=== PATIENT | male | born 1995 | race Caucasian/White ===

== ENCOUNTER 2017-09-08 08:57 | Emergency (ER) | payer OTHER, SELFPAY ==
--- NOTE | 2017-09-08 09:06 | RAD_ITS ---
STUDY: X-RAY - LUMBAR SPINE REASON FOR EXAM: Male, 21 years old. Pain following recent injury. TECHNIQUE: 3 view(s) of the lumbar spine were obtained. COMPARISON: None FINDINGS: Normal lumbar lordosis. There is no substantial scoliosis. There is a normal alignment of the vertebrae. Normal vertebral bodies and endplates. Normal disc space heights. The soft tissue structures are unremarkable. RAD/Lumbar Spine 2 or 3 Views IMPRESSION: Normal x-ray examination of the lumbar spine. Electronically Signed: Davonte Alonso MD at 9:25 EST Tel [phone], Service support ,
--- NOTE | 2017-11-11 15:30 | ED.DCSUM_ITS ---
- ER Visit Summary Date of Service: 11/11/17 Chief Complaint: Back pain History of Present Illness: Note this is a late dictation from the emergency department visit dated 09/08/2017. The patient is a 22 M who presents with back pain for the past 6 hours. He was lifting a pettit on truck when it suddenly released. He does complain of some numbness radiating to right buttock. No pain radiating to the legs. No fever abdominal pain urinary retention or fecal incontinence. He describes his pain as burning. No other injuries. Physical Examination: Afebrile vitals are stable Heart regular rate and rhythm Lungs clear Abdomen soft Patient does have some right paraspinal lumbar tenderness Negative straight leg raise bilaterally 5 out of 5 dorsiflexion, plantarflexion, extensor hallucis longus. Test Results: Lumbar x-rays are unremarkable. Emergency Department Course and Treatment: Patient has no signs or symptoms of serious life or limb threatening pathology. His history and examination are consistent with a lumbosacral strain. He was instructed on supportive care and discharge. Treatment Plan: [] Disposition: Discharge Impression: Lumbosacral strain This note was generated with [employer] dictation software. It may contain incorrect words, spelling, and punctuation that were not noted in review of the chart prior to signing ED Disposition - Plan for ED Patient: Disposition: Home or Assisted Living Referrals: Care Physician,No Primary [Primary Care Provider] -
== END 2017-09-08 10:10 | disposition home or self-care (01) ==
PROVIDERS: Emergency Provider Emergency Medicine
DX: S39.012A Strain of muscle, fascia and tendon of lower back, initial encounter (principal); X50.9XXA Other and unspecified overexertion or strenuous movements or postures, initial encounter; Y93.9 Activity, unspecified; Y92.9 Unspecified place or not applicable; Z72.0 Tobacco use
CPT/HCPCS: 72100; 99282

== ENCOUNTER 2021-04-25 12:12 | Emergency (ER) | payer SELFPAY ==
[2021-04-25 12:13] VITALS: BP 95/62; PULSE 54; RESP 16; TEMP 36.6; O2SAT 100; BMI 43.2
--- NOTE | 2021-04-25 12:52 | NURSING ---
NO OLD EKGS
--- NOTE | 2021-04-25 13:29 | CT_ITS ---
EXAM: CT HEAD WITHOUT INTRAVENOUS CONTRAST CLINICAL INDICATION: Headaches. TECHNIQUE: Multiple axial images were obtained of the head without intravenous contrast. This CT exam was performed using one or more of the following dose reduction techniques: automated exposure control, adjustment of the mA and/or kV according to patient size, and/or use of iterative reconstruction technique. This report was created using [employer] report generation technology. COMPARISON: None. FINDINGS: BRAIN AND EXTRA-AXIAL SPACES: Unremarkable. No intra- or extra-axial hemorrhage. No evidence of acute infarct. No intracranial mass or mass effect. There is preservation of the donato/white matter interface. Posterior fossa structures are unremarkable. Ventricles are appropriate for age. No hydrocephalus. Basal cisterns are patent. BONES/JOINTS: Unremarkable. No discrete lytic or blastic abnormalities. SINUSES: Unremarkable as visualized. Clear. MASTOID AIR CELLS: Unremarkable. Clear. ORBITS: Visualized globes, extraocular muscles, optic nerves and retrobulbar fat appear unremarkable. CT/Brain/Head without Contrast IMPRESSION: Negative head/brain CT without intravenous contrast. Electronically Signed: Donato Lin MD at 15:34 EDT , Service support ,
--- NOTE | 2021-04-25 13:29 | EKG12_ITS ---
Test Reason : CP Blood Pressure : / mmHG Vent. Rate : 058 BPM Atrial Rate : 058 BPM P-R Int : 154 ms QRS Dur : 104 ms QT Int : 382 ms P-R-T Axes : 046 046 020 degrees QTc Int : 374 ms Sinus bradycardia with marked sinus arrhythmia Otherwise normal ECG Confirmed by STANLEY BOYD, ROMAIN ([id number]), fan mail editor FERCHO ALMENDAREZ ([id number]) on 04/26/2021 11:46:53 AM Referred By: ADELA/KELIN Confirmed By:ROMAIN ANGEL MD
--- NOTE | 2021-04-25 13:31 | EDS_ITS ---
HPI History of Present Illness Chief Complaint: Chest Pain Informant: patient Narrative Narrative: Patient presents with episodes of anxiety going on for 2 or so months. He states they come out of the blue. He will suddenly get anxious. He has trouble focusing. He gets chest pain. He will sometimes feel like it is hard to breathe. The symptoms usually last 1 to 2 hours. In between episodes he feels perfectly fine. He is just not had these before so he is not sure if this is a problem or not. He does not have depression. No suicidal thoughts. He is not coughing. No fevers or chills. Nothing specifically makes the symptoms better or worse. He is not a smoker. He has no blood pressure or diabetes or family history of heart disease. He is last travel was back in December. Patient also states he has been having headaches. Most of these are in the right frontal area. These have been going on for about 6 or 7 months. No focal neurologic deficits. No specific symptoms make these better or worse either. [facility] Medical History GERD (gastroesophageal reflux disease) Home Medications hydroxyzine pamoate [Vistaril] 25 mg PO TID PRN #20 cap 04/25/21 [Rx Last Taken Unknown] Allergy/AdvReac Type Severity Reaction Status Date / Time No Known Allergies Allergy Verified 04/25/21 12:16 Social History Smoking Status: Current every day smoker tobacco type: cigarettes ROS ROS ED Constitutional Constitutional ED: Denies chills, fever(s) or sweats Eyes Eyes: Denies change in vision ENT ENT ED: Denies ear pain or rhinorrhea Cardiovascular Cardiovascular: Reports as per HPI, chest pain and palpitations Respiratory/Chest Respiratory/Chest: Reports dyspnea; Denies cough or dyspnea on exertion Gastrointestinal Gastrointestinal: Denies abdominal pain, nausea or vomiting Genitourinary Genitourinary ED: Denies dysuria Musculoskeletal Musculoskeletal: Denies back pain Integumentary Denies rash Neurologic Neurologic: Reports headache(s); Denies paresthesias or weakness Psychiatric Psychiatric: Reports anxiety; Denies depression, suicidal ideation or suicidal thoughts Endocrine Endocrinology: Denies polydipsia or polyuria Hematologic/Lymphatic Hematologic/Lymphatic: Denies easy bleeding or easy bruising Allergic/Immunologic Allergic/Immunologic ED: Denies urticaria EXAM Physical Exam Const Vital Signs: 04/25/21 12:13 04/25/21 14:49 04/25/21 16:22 Temperature 97.9 F Temperature Source Temporal Pulse Rate 54 L 53 L 49 L Respiratory Rate 16 18 15 Blood Pressure 95/62 122/72 H 127/71 H Blood Pressure Mean 73 88 89 Pulse Ox 100 96 98 Oxygen Delivery Method Room Air Room Air Room Air HEENT normocephalic and atraumatic Eyes PERRL and EOMs intact bilaterally General Eye ED: Negative for pale conjunctiva Neck no lymphadenopathy and supple Chest Wall inspection of chest normal and palpation of chest normal Resp normal respiratory effort and clear to auscultation bilaterally Effort and Inspection: Negative for respiratory distress Auscultation: Negative for rales, rhonchi or wheezes Cardio regular rate, regular rhythm and S1 normal heart sound Rate: bradycardia Peripheral Pulses: radial pulses present and posterior tibial pulses present GI normal to inspection, nondistended, normoactive bowel sounds, soft to palpation, non-tender, non-distended and no masses Back/Spine no CVA tenderness Extremity normal to inspection General Extremety ED: Yes tenderness; Negative for edema or pulses abnormal General Extremity: Negative for edema or pulses abnormal Neuro oriented x3 Sensorium / Orientation: awake and alert Psych mental status grossly normal Attitude: No agitated Mood & Affect: Negative for depressed, anxious or tearful Skin no rashes or lesions noted MDM MDM MDM Narrative Medical decision making narrative: Patient's chest x-ray and CT are negative. Blood work shows no marked abnormalities. He also has a negative troponin. He has had symptoms been going on for some months. I think this likely is related to anxiety. I will write him for some Vistaril. I will refer him for follow- up. We did discuss reasons to return and include worsening episodes of pain, anxiety, dyspnea, fevers or other concerns. Lab Data Attestation: I reviewed the patient's lab results. Labs: Laboratory Results - last 24 hr 04/25/21 04/25/21 13:48 13:48 WBC 8.5 RBC 5.52 Hgb 15.9 Hct 47.4 MCV 85.9 MCH 28.8 MCHC 33.5 RDW Std Deviation 36.7 RDW Coeff of Nell 11.7 Plt Count 345 MPV 10.8 Immature Gran % (Auto) 0.200 Neut % (Auto) 67.2 Lymph % (Auto) 26.6 [place] % (Auto) 4.8 Eos % (Auto) 0.6 Baso % (Auto) 0.6 Absolute Neuts (auto) 5.7 Absolute Lymphs (auto) 2.27 Nucleated RBC % 0 Sodium 139 Potassium 3.5 Chloride 106 Carbon Dioxide 25.0 Anion Gap 8 BUN 10 Creatinine 1.14 Estim Creat Clear Calc 105.50 Est GFR (MDRD) Af Amer 100 Est GFR (MDRD) Non-Af 83 BUN/Creatinine Ratio 8.8 L Glucose 92 Calcium 9.3 Troponin I High Sens 6.9 Radiography Diagnostic Testing: Radiology Impression Brain CT 04/25/21 13:29 IMPRESSION: Negative head/brain CT without intravenous contrast. Electronically Signed: Donato Lin MD at 15:34 EDT , Service support , Chest X-Ray 04/25/21 15:26 IMPRESSION: Normal chest radiograph. Electronically Signed: Donato Lin MD at 15:39 EDT , Service support , Discharge Plan Triage Chief Complaint: Chest Pain ED Provider: Matt Mccrary Dx/Rx/DC Orders Clinical Impression: Panic attacks, Chest pain, History of frequent headaches Instructions: ED Chest Pain, Noncardiac, ED Panic Attack Prescriptions: New hydroxyzine pamoate [Vistaril] 25 mg capsule 25 mg PO TID PRN (Reason: anxiety) Qty: 20 RF: 0 Primary Care Provider: Cortez Fitzgerald Referrals: Cortez Fitzgerald MD [Primary Care Provider] - 3-5 Days Disposition Disposition: Home, Self Care
[2021-04-25 13:53] LABS: Absolute Lymphocyte Count 2.27 X10^3/uL (0.83-4.51); Absolute Neutrophil Count 5.7 X10^3/uL (2.0-7.7); Basophil# 0.05 X10^3/uL; Basophil% 0.6 % (0-1); Eosinophil# 0.05 X10^3/uL; Eosinophils% 0.6 % (0-5); Hematocrit 47.4 % (40-54); Hemoglobin 15.9 g/dL (13.0-16.5); Lymphocyte # 2.27 X10^3/ul (0.83-4.51); Lymphocyte % 26.6 % (19-41); Mean Corp Hgb Conc 33.5 g/dL (32-36); Mean Corpuscular Hgb 28.8 pg (27.0-32.0); Mean Corpuscular Volume 85.9 fL (80-94); Mean Platelet Vol. 10.8 fl (6.2-12.0); Monocyte# 0.41 X10^3/uL; Monocyte% 4.8 % (0-10); NRBC Flagged by Analyzer 0 % (0-5); Neutrophil # 5.72 X10^3/uL (2.7-7.7); Neutrophil % 67.2 % (47-70); Platelet Count 345 K/mm3 (150-450); RBC Distribution Width CV 11.7 % (11.6-14.6); RBC Distribution Width SD 36.7 fl (35.1-43.9); Red Blood Count 5.52 M/mm3 (4.6-6.2); White Blood Count 8.5 K/mm3 (4.4-11.0)
[2021-04-25 14:10] LABS: Anion Gap 8 (5-15); BUN 10 mg/dL (7-18); BUN/Creat Ratio 8.8 RATIO (10-20); Calcium,Total 9.3 mg/dL (8.5-10.1); Chloride 106 mmol/L (98-107); Creatinine, Serum 1.14 mg/dL (0.70-1.30); EST Glomerular Filtration Rate 83 mL/min (>60); Est Glom Filt Rate - Afr Amer 100 mL/min (>60); Glucose 92 mg/dL (74-106); Potassium 3.5 mmol/L (3.5-5.1); Sodium Level 139 mmol/L (136-145); Troponin-I HS 6.9 pg/mL (3.0-78.5)
[2021-04-25 14:49] VITALS: BP 122/72; PULSE 53; RESP 18; O2SAT 96
--- NOTE | 2021-04-25 15:26 | RAD_ITS ---
EXAM: XR CHEST, 1 VIEW CLINICAL INDICATION: Chest pain. TECHNIQUE: Frontal view of the chest. This report was created using [employer] report generation technology. COMPARISON: None. FINDINGS: LUNGS AND PLEURAL SPACES: Unremarkable. No consolidation or edema. No pneumothorax. No effusion. HEART: Unremarkable. Cardiac silhouette not enlarged. MEDIASTINUM: Central airways and mediastinal contour are unremarkable. BONES/JOINTS: Unremarkable. SOFT TISSUES: Unremarkable. RAD/Chest 1 View (Portable) IMPRESSION: Normal chest radiograph. Electronically Signed: Donato Lin MD at 15:39 EDT , Service support ,
[2021-04-25 16:22] VITALS: BP 127/71; PULSE 49; RESP 15; O2SAT 98
[2021-04-25 17:32] VITALS: BP 105/70; PULSE 72; RESP 16; O2SAT 99
== END 2021-04-25 17:33 | disposition home or self-care (01) ==
PROVIDERS: Emergency Provider Emergency Medicine; PCP Family Medicine
DX: F41.0 Panic disorder [episodic paroxysmal anxiety] (principal); R51.9 Headache, unspecified; K21.9 Gastro-esophageal reflux disease without esophagitis; F17.210 Nicotine dependence, cigarettes, uncomplicated
CPT/HCPCS: 70450; 71045; 80048; 84484; 85025; 93005; 99283; A4216

== ENCOUNTER 2021-05-31 11:36 | Emergency (ER) | payer BC, SELFPAY ==
[2021-05-31 11:37] VITALS: BP 130/77; PULSE 48; RESP 18; TEMP 36.9; O2SAT 99; BMI 43.0
[2021-05-31 11:52] LABS: Absolute Lymphocyte Count 2.39 X10^3/uL (0.83-4.51); Absolute Neutrophil Count 4.5 X10^3/uL (2.0-7.7); Basophil# 0.04 X10^3/uL; Basophil% 0.5 % (0-1); Eosinophil# 0.11 X10^3/uL; Eosinophils% 1.5 % (0-5); Hematocrit 48.3 % (40-54); Hemoglobin 16.1 g/dL (13.0-16.5); Lymphocyte # 2.39 X10^3/ul (0.83-4.51); Lymphocyte % 31.9 % (19-41); Mean Corp Hgb Conc 33.3 g/dL (32-36); Mean Corpuscular Hgb 29.2 pg (27.0-32.0); Mean Corpuscular Volume 87.5 fL (80-94); Mean Platelet Vol. 10.9 fl (6.2-12.0); Monocyte# 0.45 X10^3/uL; NRBC Flagged by Analyzer 0 % (0-5); Platelet Count 305 K/mm3 (150-450); RBC Distribution Width CV 11.9 % (11.6-14.6); RBC Distribution Width SD 38.1 fl (35.1-43.9); Red Blood Count 5.52 M/mm3 (4.6-6.2); White Blood Count 7.5 K/mm3 (4.4-11.0)
[2021-05-31 12:07] LABS: Anion Gap 2 (5-15); BUN 14 mg/dL (7-18); BUN/Creat Ratio 14.3 RATIO (10-20); Calcium,Total 9.2 mg/dL (8.5-10.1); Chloride 106 mmol/L (98-107); Creatinine, Serum 0.98 mg/dL (0.70-1.30); EST Glomerular Filtration Rate 99 mL/min (>60); Est Glom Filt Rate - Afr Amer 120 mL/min (>60); Estimated Creatinine Clearance 122.73 ml/min; Glucose 95 mg/dL (74-106); Sodium Level 137 mmol/L (136-145)
[2021-05-31 12:13] LABS: Bacteria 0 SEEN /hpf (None Seen); Mucous, Urine 0 SEEN /hpf (<or=2+); Red Blood Cells-Urine 0 SEEN /hpf (0-5); White Blood Cells 0 SEEN /hpf (0-5)
[2021-05-31 12:15] LABS: Color, Urine Yellow (Yellow); Glucose, Dipstick Normal (Normal); Ketone-Dipstick Negative (Negative); Leukocyte Esterase-Dipstick Negative /ul (Negative); Nitrite-Dipstick Negative (Negative); Occult Blood-Urine Negative /ul (Negative); Protein-Dipstick 15 mg/dl (Negative); Specific Gravity, Urine 1.015 (1.002-1.030); Urine Bilirubin Dipstick Negative (Negative); Urine Clarity Clear (Clear); Urine Urobilinogen Normal (Normal)
[2021-05-31 12:21] LABS: Squamous Epithelial Cells - UA 0-5 SEEN /hpf (0-5)
--- NOTE | 2021-05-31 13:34 | US_ITS ---
STUDY: ABDOMINAL ULTRASOUND - RIGHT UPPER QUADRANT REASON FOR VISIT: Male, 25 years old worsening right upper quadrant pain. TECHNIQUE: Ultrasound evaluation of the right upper quadrant was performed with real-time and static donato-scale imaging. TECHNICAL QUALITY: Adequate. COMPARISON: None. FINDINGS: Liver: The liver is mildly enlarged and measures 18.4 cm. There is increased echogenicity consistent with fatty infiltration. The bile ducts are within normal limits. There is hepatic color flow. The direction of portal flow is hepatopetal. There is no demonstrated mass lesion. Gallbladder: Normal distended gallbladder. The gallbladder wall measures 2.8 mm. There is a negative sonographic Mi''s sign. There is no pericholecystic fluid. There are no gallstones. Common Bile Duct (C.B.D.): The common bile duct measures 3.5 mm. Pancreas: Normal size of the head, body and tail of the pancreas. There is normal echogenicity of the pancreas. There is no demonstrated pancreatic mass or cyst. Right Kidney: Normal size of the right kidney. The right kidney measures 12.2 cm x 5.6 cm x 5.7 cm. Normal renal cortex. The right cortex measures 1.8 cm. There is no demonstrated renal mass or cyst. There is no right hydronephrosis. US/Gallbladder IMPRESSION: Mild hepatomegaly and fatty infiltration of the liver. Electronically Signed: Davonte Alonso MD at 14:38 EDT , Service support ,
--- NOTE | 2021-05-31 13:36 | ED.VIS.GI ---
HPI HPI - GI History of Present Illness Chief Complaint: Abd Pain Narrative Narrative: Patient presents with right upper quadrant abdominal pain for the past few days which was intermittent but now it is more constant. He had noticed that it was worse with eating fried foods. He has no current nausea his pain is mild to moderate and does not wish analgesia. He has no lower abdominal pain. He has no diarrhea or constipation. He has no back pain or tearing sensation no radiation of his pain. No chest pain or shortness of breath. [facility] Medical History GERD (gastroesophageal reflux disease) Home Medications hydroxyzine pamoate [Vistaril] 25 mg PO TID PRN #20 cap 04/25/21 [Rx Last Taken Unknown] omeprazole 40 mg PO DAILY #30 cap 05/31/21 [Rx Last Taken Unknown] sucralfate [Carafate] 1 g PO BID #10 tab 05/31/21 [Rx Last Taken Unknown] Allergy/AdvReac Type Severity Reaction Status Date / Time No Known Allergies Allergy Verified 05/31/21 11:37 Social History Smoking Status: Current every day smoker tobacco type: cigarettes ROS ROS ED ROS Narrative Past medical history: History of anxiety Medications: Reviewed Social history: Noncontributory Review of systems: All systems negative except as indicated General: No fever Eyes: No visual changes ENT: No upper airway congestion, normal voice Neck: No neck pain Cardiovascular: No chest pain Respiratory: No shortness of breath or cough Gastrointestinal: Abdominal pain as in HPI Genitourinary: No dysuria Musculoskeletal: Denies myalgias no difficulty with ambulation Skin: No rash Neurological: No memory loss, confusion or any focal weakness Psych: No recent behavioral changes Hematologic: No easy bleeding or easy bruising EXAM Physical Exam Narrative Exam Narrative: Physical exam General: Well nourished, Well developed, No Acute Distress Head: Normocephalic, Atraumatic Eyes: Conjunctiva not pale ENT: Moist mucous membranes Neck: Supple, Nontender, No lymphadenopathy Cardiovascular: Regular rate, Regular rhythm Respiratory: No distress, CTA bilaterally Abdomen: Soft, there is right upper quadrant abdominal pain. Mi's test is negative. There is no lower abdominal pain. No pain in McBurney's. No flank pain. No guarding or rebound. Back: Nontender, Normal Inspection. Negative for: CVA tenderness Extremities: Nontender, No edema Skin: Normal color, No rash Neurological: Alert, Normal Strength, Normal Sensation Psychological: Normal affect Const Vital Signs: 05/31/21 11:37 Temperature 98.4 F Temperature Source Temporal Pulse Rate 48 L Respiratory Rate 18 Blood Pressure 130/77 H Blood Pressure Mean 94 Pulse Ox 99 Oxygen Delivery Method Room Air MDM MDM MDM Narrative Medical decision making narrative: Patient has a normal work-up his pain is right upper quadrant but its likely secondary to gastritis and/or an ulcer. I will treat him as such. His gallbladder ultrasound is negative. He is found to have fatty liver and he was warned about losing weight and changing his diet. Otherwise he will be discharged in stable condition. Lab Data Labs: Laboratory Results - last 24 hr 05/31/21 05/31/21 05/31/21 11:44 11:44 11:44 WBC 7.5 RBC 5.52 Hgb 16.1 Hct 48.3 MCV 87.5 MCH 29.2 MCHC 33.3 RDW Std Deviation 38.1 RDW Coeff of Nell 11.9 Plt Count 305 MPV 10.9 Immature Gran % (Auto) 0.100 Neut % (Auto) 60.0 Lymph % (Auto) 31.9 [place] % (Auto) 6.0 Eos % (Auto) 1.5 Baso % (Auto) 0.5 Absolute Neuts (auto) 4.5 Absolute Lymphs (auto) 2.39 Nucleated RBC % 0 Sodium 137 Potassium 4.0 Chloride 106 Carbon Dioxide 29.0 Anion Gap 2 L BUN 14 Creatinine 0.98 Estim Creat Clear Calc 122.73 Est GFR (MDRD) Af Amer 120 Est GFR (MDRD) Non-Af 99 BUN/Creatinine Ratio 14.3 Glucose 95 Calcium 9.2 Total Bilirubin 1.00 Direct Bilirubin 0.21 AST 32 ALT 67 H Alkaline Phosphatase 52 Total Protein 7.8 Albumin 4.5 Globulin 3.3 Lipase 52 L Urine Color Urine Clarity Urine pH Ur Specific [place] Urine Protein Urine Glucose (UA) Urine Ketones Urine Occult Blood Urine Nitrite Urine Bilirubin Urine Urobilinogen Ur Leukocyte Esterase Urine RBC Urine WBC Ur Squamous Epith Cells Urine Bacteria Urine Mucus 05/31/21 12:05 WBC RBC Hgb Hct MCV MCH MCHC RDW Std Deviation RDW Coeff of Nell Plt Count MPV Immature Gran % (Auto) Neut % (Auto) Lymph % (Auto) [place] % (Auto) Eos % (Auto) Baso % (Auto) Absolute Neuts (auto) Absolute Lymphs (auto) Nucleated RBC % Sodium Potassium Chloride Carbon Dioxide Anion Gap BUN Creatinine Estim Creat Clear Calc Est GFR (MDRD) Af Amer Est GFR (MDRD) Non-Af BUN/Creatinine Ratio Glucose Calcium Total Bilirubin Direct Bilirubin AST ALT Alkaline Phosphatase Total Protein Albumin Globulin Lipase Urine Color Yellow Urine Clarity Clear Urine pH 6.0 Ur Specific [place] 1.015 Urine Protein 15 H Urine Glucose (UA) Normal Urine Ketones Negative Urine Occult Blood Negative Urine Nitrite Negative Urine Bilirubin Negative Urine Urobilinogen Normal Ur Leukocyte Esterase Negative Urine RBC 0 SEEN Urine WBC 0 SEEN Ur Squamous Epith Cells 0-5 SEEN Urine Bacteria 0 SEEN Urine Mucus 0 SEEN Radiography Diagnostic Testing: Radiology Impression Gallbladder Ultrasound 05/31/21 13:34 IMPRESSION: Mild hepatomegaly and fatty infiltration of the liver. Electronically Signed: Davonte Alonso MD at 14:38 EDT , Service support , Discharge Plan Triage Chief Complaint: Abd Pain ED Provider: Celso Dominguez Dx/Rx/DC Orders Clinical Impression: Gastritis Instructions: ED Gastritis (Adult) Prescriptions: New omeprazole 40 mg capsule,delayed release(DR/EC) 40 mg PO DAILY Qty: 30 RF: 0 sucralfate [Carafate] 1 gram tablet 1 g PO BID Qty: 10 RF: 0 No Action hydroxyzine pamoate [Vistaril] 25 mg capsule 25 mg PO TID PRN (Reason: anxiety) Qty: 20 RF: 0 Primary Care Provider: Cortez Fitzgerald Referrals: Cortez Fitzgerald MD [Primary Care Provider] - 2 Days Disposition Disposition: Home, Self Care
[2021-05-31] MEDS: 0.9% Normal Saline 1,000 ML 500 ML IV (13:46)
[2021-05-31 14:20] LABS: AST(SGOT) 32 U/L (15-37); Alanine Aminotransfer ALT/SGPT 67 U/L (16-61); Albumin, Serum 4.5 g/dL (3.2-5.0); Alkaline Phosphatase 52 U/L (45-117); Bilirubin, Direct 0.21 mg/dL (0.00-0.30); Globulin 3.3 g/dL (2.2-4.2); Lipase 52 U/L (73-393); Protein, Total 7.8 g/dL (6.4-8.2)
[2021-05-31 15:09] VITALS: BP 109/70; PULSE 51; PULSE 52; RESP 15; RESP 17; O2SAT 9; O2SAT 98
[2021-05-31] MEDS: Mag Hydrox/Al Hydrox/Simeth 30 ML UDC PO (15:12)
[2021-05-31] MEDS: Famotidine 200 MG/20 ML MDV 20 MG in 0.9% Normal Saline (Pres. free 8 ML 300 MG IV (15:53)
== END 2021-05-31 15:55 | disposition home or self-care (01) ==
PROVIDERS: Emergency Provider Emergency Medicine; PCP Family Medicine
DX: K29.70 Gastritis, unspecified, without bleeding (principal); K76.0 Fatty (change of) liver, not elsewhere classified; F41.9 Anxiety disorder, unspecified; K21.9 Gastro-esophageal reflux disease without esophagitis; Z79.899 Other long term (current) drug therapy; F17.210 Nicotine dependence, cigarettes, uncomplicated
CPT/HCPCS: 76705; 80048; 80076; 81001; 83690; 85025; 96361; 96374; 99285; J7040; A4216; J3490

== ENCOUNTER → 2022-03-31 | Outpatient (CLI) | payer BC, SELFPAY ==
[2022-03-31 17:38] LABS: Absolute Lymphocyte Count 2.72 X10^3/uL (0.83-4.51); Absolute Neutrophil Count 5.1 X10^3/uL (2.0-7.7); Basophil# 0.07 X10^3/uL; Basophil% 0.8 % (0-1); Eosinophil# 0.15 X10^3/uL; Eosinophils% 1.8 % (0-5); Hematocrit 53.4 % (40-54); Hemoglobin 17.2 g/dL (13.0-16.5); Lymphocyte # 2.72 X10^3/ul (0.83-4.51); Lymphocyte % 31.8 % (19-41); Mean Corp Hgb Conc 32.2 g/dL (32-36); Mean Corpuscular Hgb 29.6 pg (27.0-32.0); Mean Corpuscular Volume 91.8 fL (80-94); Mean Platelet Vol. 10.8 fl (6.2-12.0); Monocyte# 0.53 X10^3/uL; Monocyte% 6.2 % (0-10); NRBC Flagged by Analyzer 0 % (0-5); Neutrophil # 5.07 X10^3/uL (2.7-7.7); Neutrophil % 59.2 % (47-70); Platelet Count 318 K/mm3 (150-450); RBC Distribution Width CV 11.9 % (11.6-14.6); RBC Distribution Width SD 40.1 fl (35.1-43.9); Red Blood Count 5.82 M/mm3 (4.6-6.2); White Blood Count 8.6 K/mm3 (4.4-11.0)
[2022-03-31 18:35] LABS: ALB/GLOB Ratio 1.3 RATIO (0.9-2.4); AST(SGOT) 22 U/L (15-37); Alanine Aminotransfer ALT/SGPT 58 U/L (16-61); Albumin, Serum 4.1 g/dL (3.2-5.0); Alkaline Phosphatase 52 U/L (45-117); Anion Gap 4 (5-15); BUN 14 mg/dL (7-18); Calcium,Total 9.2 mg/dL (8.5-10.1); Chloride 108 mmol/L (98-107); Creatinine, Serum 1.08 mg/dL (0.70-1.30); EST Glomerular Filtration Rate 88 mL/min (>60); Est Glom Filt Rate - Afr Amer 106 mL/min (>60); Globulin 3.2 g/dL (2.2-4.2); Glucose 106 mg/dL (74-106); Potassium 3.6 mmol/L (3.5-5.1); Protein, Total 7.3 g/dL (6.4-8.2); Sodium Level 140 mmol/L (136-145); Thyroid Stim Hormone (TSH) 1.37 uIU/mL (0.358-3.74)
== END | disposition home or self-care (01) ==
LOC: MFPLAB 17:00
PROVIDERS: PCP Family Medicine; Referring Provider Family Medicine; Visit Provider Family Medicine
DX: K21.9 Gastro-esophageal reflux disease without esophagitis (principal); F41.9 Anxiety disorder, unspecified
CPT/HCPCS: 36415; 80053; 84443; 85025

== ENCOUNTER 2022-04-22 06:45 | Day surgery (SDC) | payer BC, SELFPAY ==
--- NOTE | 2022-04-22 06:57 | HP.PCM_ITS ---
History and Physical Date of Admission: 04/22/22 Visit Reasons:?DYSPHAGIA & GERD Chief Complaint: Dysphagia & GERD Financial Services Auditor Required: No Is patient in pain?: No Allergies No Known Allergies Allergy (Verified 04/12/22 14:49) Medications hydroxyzine pamoate 25 mg capsule (Vistaril) 25 mg PO TID PRN anxiety #20 caps 04/25/21 [Rx Confirmed 04/12/22] famotidine 40 mg tablet 40 mg PO DAILY 04/12/22 [History Confirmed 04/12/22] PFSH Medical History?(Updated 04/12/22 @ 14:43 by Ambika Monday) GERD (gastroesophageal reflux disease) Surgical History?(Updated 04/12/22 @ 14:43 by Ambika Monday) History of arthroscopy of knee History of placement of ear tubes History of tonsillectomy Family History?(Updated 04/12/22 @ 14:46 by Ambika Monday) Grandfather Diabetes Heart disease Hypertension High cholesterolGrandmother Cancer ?? ? pt unsure, knows it was cancer of reproductive system Diabetes Heart disease High cholesterol Hypertension CVA (cerebral vascular accident)Mother Cancer ?? ? pt unsure, knows it was cancer of reproductive system Diabetes Gastric ulcerAunt Kidney disease Social History?(Updated 04/12/22 @ 14:47 by Ambika Monday) Smoking Status:? Never smoker alcohol intake:? never substance use type:? marijuana and other details: pt states he has a medical marijuana card for pain in his knees HPI HPI HPI: GIANNA STEARNS, is a 26 M who presents to the office today for surgical consultation regarding reflux disease and esophageal dysphagia..? The patient is being referred by Dr Cortez Armstrong and a written copy of my surgical consult recommendations will be returned to him.? Patient is complaining of epigastric retrosternal burning sensation regurgitation and sour brash.? He has some difficulties with swallowing solid foods feels like it gets stuck.? He has been utilizing [id number] famotidine with some improvement in symptoms but persistent dysphagia.? He has not had an upper endoscopy.? His history is co mplicated by recent onset of anxiety disorder and what sounds like panic attacks.? Dr. Armstrong started the patient on sertraline and omeprazole 20 mg daily.? Laboratory was notable for a white blood cell count of 8.6 with a hemoglobin of 17.2 and hematocrit of 53.4 and a platelet count of 318,000.? A previous gallbladder ultrasound obtained through the emergency room May 31, 2021 demonstrated mild hepatomegaly and fatty infiltration of the liver.? No acute findings of the gallbladder at that time.? At the patient's most recent office visit body weight was noted to be 288 pounds.? Patient however notes that he has lost weight from previous maximum weight of 350 pounds. He works for [employer].? Does heavy lifting and straining with maximum usually about 50 pounds. He notes family history of peptic ulcer disease in his mother. Although he was initially tried on omeprazole that seemed to feel after a while and he was converted to famotidine 40 mg daily which currently seems to be ad equately controlling his symptoms. ROS General General: Yes weight change and fatigue; No appetite, colon cancer, breast cancer or weakness HEENT HEENT: Yes difficulty swallowing; No eye injury, eye surgery, swollen glands or hoarseness Endo Endocrine: No thyroid disease, diabetes mellitus, thyroid cancer, Hair loss, heat intolerance or cold intolerance Skin Skin: No rash or changing moles Musc Musculoskeletal: Yes back problems; No arthritis, rheumatoid arthritis, gout or joint pain Cardio Cardiovascular: No murmur, pacemaker, heart disease, atrial fibrillation, high blood pressure, heart attack, heart stent, palpitations, shortness of breat with exertion or chest pain Psych Psychiatric: Yes depression and anxiety; No hearing voices Resp Respiratory: No shortness of breath, No sleep apnea, No cough, No COPD, No asthma, No emphysema and No wheezing Gastro Gastrointestinal: No abdominal pain, Yes nausea or vomiting, Yes diarrhea, No constipation, No blood in stool, Yes acid reflux, No hemorrhoids, No ulcers, No gallbladder problem and No black,tarry stools Ziyad Hematologic: No blood thinners, No blood disorders, No bleeding, No anemia and No blood clots Neuro Neurologic: No system reviewed and no additional complaints, except as documented, No as per HPI, No abnormal gait, No abnormal hearing, No abnormal movements, No abnormal speech, No behavioral changes, No burning sensations, No confusion, No convulsions, No disequilibrium, No dizziness, No localized weakness, No frequent falls, No headache(s), No lack of coordination, No loss of vision, No memory loss, No numbness, No other visual disturbances, No radicular pain, No restless legs, No sensory deficit, No syncope, No tingling, No tremor(s), No weakness and No other Exam Const General: cooperative, healthy appearing, comfortable and no acute distress Orientation: alert, awake and oriented x3 [facility] Head: normal to inspection Eyes General: appearance normal, both eyes and all related structures Neck Neck: normal visual inspection Chest Chest palpation & inspection: normal inspection of the chest Resp Effort & Inspection: normal respiratory effort Auscultation: clear to auscultation bilaterally Cardio Rate: regular rate Rhythm: regular rhythm GI Palpation: soft Musc Cervical Spine: normal cervical lordosis Skin General: no rashes or lesions noted Neuro General: patient alert, patient awake and patient oriented x3 Assessment and Plan Assessment and Plan (1) GERD (gastroesophageal reflux disease): ?Status:?Acute ?Plan: 26-year-old gentleman.? Despite losing weight and ceasing tobacco and alcohol his reflux symptoms seem to have escalated.? Previously was elation omeprazole affect seems to have waned.? Currently is on famotidine with incomplete relief.? He has never had a previous upper endoscopy. I recommend to him esophagogastroduodenoscopy with possible biopsy if indicated.? He is aware of the technique, benefit, risk of alternatives.? I additionally discussed conservative measures to help manage reflux disease.? He has had an opportunity to ask and have questions answered.? We will schedule procedure at his discretion. I appreciate the opportunity of assisting with the surgical care Copy: Dr Cortez Rojas M.D., F.A.C.S. I have re-examined the patient. There are no clinical changes since date of exam.
[2022-04-22] MEDS: Lactated Ringers 1,000 ML 15 ML IV (07:23)
[2022-04-22 07:24] VITALS: BP 119/73; PULSE 70; RESP 18; TEMP 37; O2SAT 97; BMI 39.3
--- NOTE | 2022-04-22 08:00 | EGD_PTH ---
PATIENT: GIANNA STEARNS LOC: EN U#:[id number] AGE/SX: 26/M ROOM: RE04/22/[address]: Dr. Yonathan Rojas MD : 1995 BED: DIS: 04/22/2022 SPEC #: [id number] RECD: 04/22/22 12:48 STATUS: RAO NIKHIL #: [id number] KESHA: 04/22/22 08:[address]: Yonathan Rojas DEPT: SURGICAL PATHOLOGY RECD BY: Bran Burgos ENTERED: 04/22/22 13:19 SP TYPE: EGD BIOPSY OT DR: Dr. Cortez Armstrong MD Tissues: A - Gastric mucous membrane B - Esophagus, NOS C - Esophagus, NOS Procedures: Special Stain Group II Surgery Specimen Level IV Alcian Blue/PAS (control) HEADER OPERATION: EGD [place] [place] PRE[place]OP DIAGNOSIS: GERD TISSUE SUBMITTED: A ? Antrum biopsy for H. pylori and path, B ? Distal esophagus biopsy, C ? Proximal esophagus biopsy MICROSCOPIC DIAGNOSIS A. Gastric antrum, biopsy: Chronic gastritis. See comment. B. Distal esophagus, biopsy: Gastroesophageal junctional mucosa with mild chronic inflammation. Focal changes of reflux. No evidence of goblet cell metaplasia. See comment. C. Proximal esophagus, biopsy: Fragments of squamous mucosa with no pathologic change. Fragments of gastric mucosa with mild chronic inflammation. AM:andres 04/25/2022 AM: 04/26/2022 COMMENT A. The results of immunohistochemistry for Helicobacter pylori will be reported separately ([id number]). B. Alcian blue/PAS stain with matched control supports the above diagnosis. MICROSCOPIC DESCRIPTION Slides are reviewed. GROSS DESCRIPTION A - Received in fixative is one container labeled with the patient's name and designated antrum biopsy. The specimen consists of one irregular fragment of light swenson soft tissue that measures 0.4 x 0.3 x 0.1 cm. The specimen is totally submitted in one cassette. B - Received in fixative is one container labeled with the patient's name and designated distal esophagus. The specimen consists of multiple irregular fragments of light swenson soft tissue that in aggregate measure 0.8 x 0.3 x 0.1 cm. The specimen is totally submitted in one cassette. C - Received in fixative is one container labeled with the patient's name and designated proximal esophagus. The specimen consists of multiple irregular fragments of light swenson soft tissue that in aggregate measure 1.2 x 0.3 x 0.1 cm. The specimen is totally submitted in one cassette. / SJ:andres 04/22/2022 TC:3 CPT: 70281 x3, 62256
--- NOTE | 2022-04-22 08:00 | IMM_PTH ---
PATIENT: GIANNA STEARNS LOC: EN U#:[id number] AGE/SX: 26/M ROOM: RE04/22/[address]: Dr. Yonathan Rojas MD : 1995 BED: DIS: 04/22/2022 SPEC #: [id number] RECD: 04/22/22 13:34 STATUS: RAO NIKHIL #: [id number] KESHA: 04/22/22 08:[address]: Yonathan Rojas DEPT: IMMUNOHISTOCHEMISTRY RECD BY: Airam Carter ENTERED: 04/22/22 13:34 SP TYPE: IMMUNO OTHR DR: Dr. Cortez Armstrong MD Tissues: A - Stomach, NOS Procedures: H Pylori (initial) PHYSICIAN & INSTITUTION [place] [address] SPECIMEN INFORMATION: Tissue Source: A ? Antrum biopsy Clinical Info: GERD Specimen Number: [id number] CPT code: 35274 METHODOLOGY: Deparaffinized sections of prefer/formalin-fixed tissue or PAP/DQ stained slides are incubated with monoclonal/polyclonal antibodies/oligonucleotide probes. Localization is made via biotin free immunoperoxidase method. Appropriate controls are performed and reacted as expected. Results on target cell population are indicated in the following table: RESULTS: ANTIBODY / CLONE RESULT Block A H Pylori (polyclonal) negative These tests were developed and their performance characteristics determined by [facility]. They may not have been cleared or approved by the U.S. Food and Drug Administration. The FDA has determined that such clearance or approval is not necessary. The above immunohistochemical/dualISH markers are ordered and reviewed by the Pathologist. INTERPRETATION: A. Antrum, biopsy: Negative for Helicobacter pylori organisms. AM:andres 04/25/2022
--- NOTE | 2022-04-22 08:00 | EGD_PTH ---
PATIENT: GIANNA STEARNS LOC: EN U#:[id number] AGE/SX: 26/M ROOM: RE04/22/[address]: Dr. Yonathan Rojas MD : 1995 BED: DIS: 04/22/2022 SPEC #: [id number] RECD: 04/22/22 12:48 STATUS: RAO NIKHIL #: [id number] KESHA: 04/22/22 08:[address]: Yonathan Rojas DEPT: SURGICAL PATHOLOGY RECD BY: Bran Burgos ENTERED: 04/22/22 13:19 SP TYPE: EGD BIOPSY OT DR: Dr. Cortez Armstrong MD Tissues: A - Gastric mucous membrane B - Esophagus, NOS C - Esophagus, NOS Procedures: Special Stain Group II Surgery Specimen Level IV Alcian Blue/PAS (control) HEADER [place] [place] DIAGNOSIS: GERD TISSUE SUBMITTED: A ? Antrum biopsy for H. pylori and path, B ? Distal esophagus biopsy, C ? Proximal esophagus biopsy MICROSCOPIC DIAGNOSIS A. Gastric antrum, biopsy: Chronic gastritis. See comment. B. Distal esophagus, biopsy: Gastroesophageal junctional mucosa with mild chronic inflammation. Focal changes of reflux. No evidence of goblet cell metaplasia. See comment. C. Proximal esophagus, biopsy: Fragments of colonic mucosa with no pathologic change. Fragments of gastric mucosa with mild chronic inflammation. SJ:andres 04/25/2022 COMMENT A. The results of immunohistochemistry for Helicobacter pylori will be reported separately ([id number]). B. Alcian blue/PAS stain with matched control supports the above diagnosis. MICROSCOPIC DESCRIPTION Slides are reviewed. GROSS DESCRIPTION A - Received in fixative is one container labeled with the patient's name and designated antrum biopsy. The specimen consists of one irregular fragment of light swenson soft tissue that measures 0.4 x 0.3 x 0.1 cm. The specimen is totally submitted in one cassette. B - Received in fixative is one container labeled with the patient's name and designated distal esophagus. The specimen consists of multiple irregular fragments of light swenson soft tissue that in aggregate measure 0.8 x 0.3 x 0.1 cm. The specimen is totally submitted in one cassette. C - Received in fixative is one container labeled with the patient's name and designated proximal esophagus. The specimen consists of multiple irregular fragments of light swenson soft tissue that in aggregate measure 1.2 x 0.3 x 0.1 cm. The specimen is totally submitted in one cassette. / SJ:rg 04/22/2022 TC:3 CPT: 19638 x3, 98807
[2022-04-22 08:30] VITALS: BP 119/73; BP 126/59; PULSE 86; RESP 16; TEMP 36.3; O2SAT 92
--- NOTE | 2022-04-22 08:32 | OP.EGD_ITS ---
Patient Name: Isidoro Flores Procedure Date: 04/22/2022 8:09 AM Date of : 1995 Age: 26 Procedure: Upper GI endoscopy Indications: Suspected gastro-esophageal reflux disease Providers: Yonathan Rojas MD Medicines: See the Anesthesia note for documentation of the administered medications Complications: No immediate complications. Procedure: Pre-Anesthesia Assessment: - Prior to the procedure, a History and Physical was performed, and patient medications and allergies were reviewed. The patient's tolerance of previous anesthesia was also reviewed. The risks and benefits of the procedure and the sedation options and risks were discussed with the patient. All questions were answered, and informed consent was obtained. Prior Anticoagulants: The patient has taken no previous anticoagulant or antiplatelet agents. ASA Grade Assessment: II - A patient with mild systemic disease. After reviewing the risks and benefits, the patient was deemed in satisfactory condition to undergo the procedure. After obtaining informed consent, the endoscope was passed under direct vision. Throughout the procedure, the patient's blood pressure, pulse, and oxygen saturations were monitored continuously. The gastroscope was introduced through the mouth, and advanced to the second part of duodenum. The upper GI endoscopy was accomplished without difficulty. The patient tolerated the procedure well. Scope In: 8:17:08 AM Scope Out: 8:24:33 AM Total Procedure Duration Time 0 hours 7 minutes 25 seconds Findings: Patch of salmon mucosa was found 15 cm from the incisors. Biopsies were taken with a cold forceps for histology. A small hiatal hernia was present. Biopsies were taken with a cold forceps for histology. Diffuse mildly erythematous mucosa without bleeding was found in the gastric antrum. Biopsies were taken with a cold forceps for histology. The examined duodenum was normal. The Z-line was variable and was found 45 cm from the incisors. Impression: - Sanford colored mucosa very proximal esophagus; biopsied - Small hiatal hernia. Biopsied at distal esophagus - Erythematous mucosa in the antrum. Biopsied. - Normal examined duodenum. - Z-line variable, 45 cm from the incisors. Recommendation: - Discharge patient to home. - Resume previous diet. - Continue present medications. - Telephone my office for pathology results in 1 week. Findings of reflux. Will await pathology Procedure Code(s): --- Professional --- 54654, Esophagogastroduodenoscopy, flexible, transoral; with biopsy, single or multiple Diagnosis Code(s): --- Professional --- K21.0, Gastro-esophageal reflux disease with esophagitis K44.9, Diaphragmatic hernia without obstruction or gangrene K31.89, Other diseases of stomach and duodenum K22.8, Other specified diseases of esophagus CPT copyright 2017 [employer]. All rights reserved. The codes documented in this report are preliminary and upon sales producer review may be revised to meet current compliance requirements. Yonathan Rojas MD 04/22/2022 8:31:46 AM This report has been signed electronically. Number of Addenda: 0 Note Initiated On: 04/22/2022 8:09 AM
--- NOTE | 2022-04-22 08:33 | OP.CCLET_ITS ---
04/22/2022 Cortez Armstrong [address] [place] [address] Re : Upper GI endoscopy procedure for Isidoro Flores Dear Dr. Armstrong This procedure was performed on Friday, April 22, 2022. My impressions and recommendations are as follows: Impressions : - Roebuck colored mucosa very proximal esophagus; biopsied - Small hiatal hernia. Biopsied at distal esophagus - Erythematous mucosa in the antrum. Biopsied. - Normal examined duodenum. - Z-line variable, 45 cm from the incisors. Recommendations : - Discharge patient to home. - Resume previous diet. - Continue present medications. - Telephone my office for pathology results in 1 week. Findings of reflux. Will await pathology My findings are described in the full procedure note, which is enclosed. If I can be of further assistance, please feel free to contact me at Doctor phone number(s): Work: . Sincerely, Yonathan Rojas MD 04/22/2022 8:31:46 AM This report has been signed electronically.
[2022-04-22 08:35] VITALS: BP 101/59; BP 119/73; PULSE 71; RESP 16; O2SAT 95
[2022-04-22 08:40] VITALS: BP 119/73; BP 92/57; PULSE 58; RESP 16; O2SAT 95
[2022-04-22 08:46] VITALS: BP 104/81; BP 119/73; PULSE 59; RESP 16; TEMP 36.9; O2SAT 94
[2022-04-22 08:58] VITALS: BP 119/73
== END 2022-04-22 09:15 | disposition home or self-care (01) ==
LOC: EN 06:47 → AC 06:48
PROVIDERS: PCP Family Medicine; Referring Provider Family Medicine; Visit Provider Surgery
PROC: 0DJ08ZZ Inspection of Upper Intestinal Tract, Via Natural or Artificial Opening Endoscopic (ICD-10-PCS; CPT 43235; principal; 2022-04-22 07:55)
DX: K29.50 Unspecified chronic gastritis without bleeding (principal); K44.9 Diaphragmatic hernia without obstruction or gangrene; F41.9 Anxiety disorder, unspecified; K21.00 Gastro-esophageal reflux disease with esophagitis, without bleeding; K76.0 Fatty (change of) liver, not elsewhere classified; F32.A Depression, unspecified; Z86.16 Personal history of COVID-19; Z79.899 Other long term (current) drug therapy
CPT/HCPCS: 43239; 88305; 88313; 88342; J7120; J2405

== ENCOUNTER 2022-07-01 11:19 | Emergency (ER) | payer SELFPAY ==
[2022-07-01 11:20] VITALS: BP 122/74; PULSE 43; RESP 16; TEMP 36.8; O2SAT 99; BMI 39.9
--- NOTE | 2022-07-01 11:55 | EKG12_ITS ---
Test Reason : LINO Blood Pressure : / mmHG Vent. Rate : 048 BPM Atrial Rate : 048 BPM P-R Int : 162 ms QRS Dur : 096 ms QT Int : 390 ms P-R-T Axes : 041 053 035 degrees QTc Int : 348 ms Sinus bradycardia with Premature atrial complexes Nonspecific ST abnormality Abnormal ECG Confirmed by STANLEY BOYD, ROMAIN ([id number]), film or videotape editor FERCHO ALMENDAREZ ([id number]) on 07/04/2022 9:20:39 AM Referred By: RUSSELL Confirmed By:ROMAIN ANGEL MD
--- NOTE | 2022-07-01 11:55 | EDS_ITS ---
HPI History of Present Illness Chief Complaint: Chest Pain Informant: patient Narrative Narrative: 26-year-old male presenting to the emergency room for the evaluation of chest pain. Patient states that he has a history of GERD and recently underwent endoscopy with Dr. Rojas and was placed on famotidine 40 mg once a day. He notes that he was told he had a small hiatal hernia. 1 month ago he ran out of this medication. He states that due to life he was unable to go to follow-up appointment. He went to urgent care today wondering if he could get a refill of his famotidine and when they asked him if he had experienced any chest pain he stated yes and it was noted that he was bradycardic into the called the ambulance and sent him to the emergency department. He states his symptoms are usually worse at night. He states that he has an ache in the center of his chest that radiates into his back. It is not constant but rather comes and goes. This is similar to his symptoms that he had before he was started on famotidine. He notes no change in exercise tolerance. He states he is recently lost a significant amount of weight through diet and exercise. He reports that he has not had any black or bloody stools or blood in vomit. He is a non-smoker but does state that he does vape some. He rarely drinks alcohol. [facility] Medical History Anxiety Back pain COVID Depression Ear infection GERD (gastroesophageal reflux disease) History of echocardiogram Injury of head and neck Marijuana use Migraine headache Non-smoker Syncope Home Medications famotidine 40 mg tablet 40 mg PO DAILY 04/12/22 [History Last Taken 04/21/22] famotidine 40 mg tablet 40 mg PO DAILY #30 tabs 07/01/22 [Rx Last Taken Unknown] Allergy/AdvReac Type Severity Reaction Status Date / Time No Known Allergies Allergy Verified 07/01/22 11:20 Family History Grandfather Diabetes Heart disease Hypertension High cholesterol Grandmother Cancer pt unsure, knows it was cancer of reproductive system Diabetes Heart disease High cholesterol Hypertension CVA (cerebral vascular accident) Mother Cancer pt unsure, knows it was cancer of reproductive system Diabetes Gastric ulcer Aunt Kidney disease Surgical History History of arthroscopy of knee History of esophagogastroduodenoscopy (EGD) History of placement of ear tubes History of tonsillectomy Social History Smoking Status: Never smoker alcohol intake: never substance use type: marijuana and other details: pt states he has a medical marijuana card for pain in his knees ROS ROS ED Constitutional Constitutional ED: Denies chills or weight loss Eyes Eyes: Denies change in vision or diplopia ENT ENT ED: Denies ear pain, rhinorrhea or sore throat Cardiovascular Cardiovascular: Reports chest pain; Denies orthopnea, palpitations or racing heartbeat Respiratory/Chest Respiratory/Chest: Denies cough, dyspnea or orthopnea Gastrointestinal Gastrointestinal: Denies abdominal pain, diarrhea, nausea or vomiting Genitourinary Genitourinary ED: Denies dysuria, hematuria or urinary frequency Musculoskeletal Musculoskeletal: Denies arthralgias or myalgias Integumentary Denies abscess or rash Neurologic Neurologic: Denies headache(s) or weakness Psychiatric Psychiatric: Denies anxiety, depression, suicidal ideation or suicidal thoughts Endocrine Endocrinology: Denies polydipsia, polyphagia or polyuria Allergic/Immunologic Allergic/Immunologic ED: Denies mouth swelling, tongue swelling or urticaria EXAM Physical Exam Const Vital Signs: 07/01/22 11:20 07/01/22 11:31 Temperature 98.3 F Temperature Source Oral Pulse Rate 43 L Respiratory Rate 16 Respiratory Effort Normal Respiratory Pattern Normal Blood Pressure 122/74 H Blood Pressure Mean 90 Pulse Ox 99 Oxygen Delivery Method Room Air Positive well nourished and well developed General Appearance ED: well developed HEENT Reports normocephalic, head/scalp atraumatic and moist mucous membranes Eyes PERRL and EOMs intact bilaterally Neck no lymphadenopathy, supple and no JVD Resp normal respiratory effort and clear to auscultation bilaterally Cardio regular rate, regular rhythm and no murmurs GI normal to inspection, nondistended, normoactive bowel sounds and non-tender Palpation: soft Back/Spine no CVA tenderness and normal ROM Extremity normal to inspection General Extremety ED: Negative for edema General Extremity: Negative for edema Neuro oriented x3 and CN's II-XII intact bilaterally Sensorium / Orientation: alert Motor Exam: strength 5/5 throughout Psych mental status grossly normal Mood & Affect: Negative for depressed or tearful Skin no rashes or lesions noted and no wounds MDM MDM MDM Narrative Medical decision making narrative: My interpretation of the chest x-ray is no acute process. CBC CMP and lipase are normal. I believe the patient's symptoms are most likely related to his reflux. I will write for him to have be able to have his famotidine. Would recommend continued follow-up return if worsening or concerns Lab Data Attestation: I reviewed the patient's lab results. Labs: Laboratory Results - last 24 hr 07/01/22 07/01/22 12:07 12:07 WBC 7.5 RBC 5.60 Hgb 16.9 H Hct 50.2 MCV 89.6 MCH 30.2 MCHC 33.7 RDW Std Deviation 40.3 RDW Coeff of Nell 12.2 Plt Count 298 MPV 11.3 Immature Gran % (Auto) 0.300 Neut % (Auto) 69.9 Lymph % (Auto) 22.7 Whiteside % (Auto) 5.8 Eos % (Auto) 0.9 Baso % (Auto) 0.4 Absolute Neuts (auto) 5.3 Absolute Lymphs (auto) 1.71 Nucleated RBC % 0 Sodium 142 Potassium 4.3 Chloride 106 Carbon Dioxide 28.0 Anion Gap 8 BUN 16 Creatinine 1.17 Estim Creat Clear Calc 101.90 Est GFR (MDRD) Af Amer 96 Est GFR (MDRD) Non-Af 80 BUN/Creatinine Ratio 13.7 Glucose 106 Calcium 9.6 Total Bilirubin 1.10 H Direct Bilirubin 0.26 AST 18 ALT 39 Alkaline Phosphatase 45 Total Protein 7.2 Albumin 4.1 Globulin 3.1 Lipase 69 L Radiography Diagnostic Testing: Clinical Impression(s) from Imaging Studies Chest X-Ray 07/01/22 12:08 IMPRESSION: No acute cardiopulmonary process. Electronically Signed: Jodie Silveira MD at 12:21 EDT , EKG Initial EKG: Attestation: I personally reviewed and interpreted this EKG as follows: Comments: PASinus bradycardia with a ventricular rate of 48 bpm. Discharge Plan Triage Chief Complaint: Chest Pain ED Provider: Zach Gonsalez Dx/Rx/DC Orders Clinical Impression: GERD (gastroesophageal reflux disease), Chest pain, Sinus bradycardia Instructions: ED GERD (Adult) Prescriptions: New famotidine 40 mg tablet 40 mg PO DAILY Qty: 30 1RF No Action famotidine 40 mg tablet 40 mg PO DAILY Label Comments: NOT HAD IN A MONTH Primary Care Provider: Cortez Armstrong Referrals: Cortez Armstrong MD [Primary Care Provider] - As soon as possible Disposition Disposition: Home, Self Care
--- NOTE | 2022-07-01 12:08 | RAD_ITS ---
STUDY: X-RAY CHEST REASON FOR EXAM: Male, 26 years old. Chest pain TECHNIQUE: Single frontal view of the chest. COMPARISON: 04/25/2021 FINDINGS: The lungs are clear and expanded. There is no demonstrated pleural abnormality. Normal size heart. Normal mediastinum and jaimee. Normal visualized pulmonary arteries. Normal visualized aortic arch and descending thoracic aorta. Normal visualized thoracic spine. Normal visualized ribs, clavicles, and shoulders. There is no demonstrated abnormality of the visualized soft tissue structures of the upper abdomen. RAD/Chest 1 View (Portable) IMPRESSION: No acute cardiopulmonary process. Electronically Signed: Jodie Silveira MD at 12:21 EDT ,
[2022-07-01 12:19] LABS: Absolute Lymphocyte Count 1.71 X10^3/uL (0.83-4.51); Absolute Neutrophil Count 5.3 X10^3/uL (2.0-7.7); Basophil# 0.03 X10^3/uL; Basophil% 0.4 % (0-1); Eosinophil# 0.07 X10^3/uL; Eosinophils% 0.9 % (0-5); Hematocrit 50.2 % (40-54); Hemoglobin 16.9 g/dL (13.0-16.5); Lymphocyte # 1.71 X10^3/ul (0.83-4.51); Lymphocyte % 22.7 % (19-41); Mean Corp Hgb Conc 33.7 g/dL (32-36); Mean Corpuscular Hgb 30.2 pg (27.0-32.0); Mean Corpuscular Volume 89.6 fL (80-94); Mean Platelet Vol. 11.3 fl (6.2-12.0); Monocyte# 0.44 X10^3/uL; Monocyte% 5.8 % (0-10); NRBC Flagged by Analyzer 0 % (0-5); Neutrophil # 5.26 X10^3/uL (2.7-7.7); Neutrophil % 69.9 % (47-70); Platelet Count 298 K/mm3 (150-450); RBC Distribution Width CV 12.2 % (11.6-14.6); RBC Distribution Width SD 40.3 fl (35.1-43.9); White Blood Count 7.5 K/mm3 (4.4-11.0)
[2022-07-01 12:33] LABS: AST(SGOT) 18 U/L (15-37); Alanine Aminotransfer ALT/SGPT 39 U/L (16-61); Albumin, Serum 4.1 g/dL (3.2-5.0); Alkaline Phosphatase 45 U/L (45-117); Anion Gap 8 (5-15); BUN 16 mg/dL (7-18); BUN/Creat Ratio 13.7 RATIO (10-20); Bilirubin, Direct 0.26 mg/dL (0.00-0.30); Calcium,Total 9.6 mg/dL (8.5-10.1); Chloride 106 mmol/L (98-107); Creatinine, Serum 1.17 mg/dL (0.70-1.30); EST Glomerular Filtration Rate 80 mL/min (>60); Est Glom Filt Rate - Afr Amer 96 mL/min (>60); Globulin 3.1 g/dL (2.2-4.2); Glucose 106 mg/dL (74-106); Lipase 69 U/L (73-393); Potassium 4.3 mmol/L (3.5-5.1); Protein, Total 7.2 g/dL (6.4-8.2); Sodium Level 142 mmol/L (136-145)
[2022-07-01 12:55] VITALS: BP 131/78; PULSE 43; RESP 16; O2SAT 99
== END 2022-07-01 12:56 | disposition home or self-care (01) ==
PROVIDERS: Emergency Provider Emergency Medicine; PCP Family Medicine; Visit Provider Emergency Medicine
DX: K21.9 Gastro-esophageal reflux disease without esophagitis (principal); R00.1 Bradycardia, unspecified; R07.9 Chest pain, unspecified
CPT/HCPCS: 71045; 80048; 80076; 83690; 85025; 93005; 99284; A4216